=== PATIENT | male | born 1950 | race Caucasian/White ===

== ENCOUNTER 2017-08-23 09:08 | Outpatient (CLI) | payer OTHER | END 2017-08-23 10:38 | disposition home or self-care (01) | LOC: SONOGRAMA 09:08 | DX: E06.9 Thyroiditis, unspecified (principal); D69.3 Immune thrombocytopenic purpura; D51.0 Vitamin B12 deficiency anemia due to intrinsic factor deficiency; D51.1 Vitamin B12 deficiency anemia due to selective vitamin B12 malabsorption with proteinuria; E06.3 Autoimmune thyroiditis; K90.89 Other intestinal malabsorption; K59.00 Constipation, unspecified; I10 Essential (primary) hypertension; I25.118 Atherosclerotic heart disease of native coronary artery with other forms of angina pectoris; D69.59 Other secondary thrombocytopenia; B96.81 Helicobacter pylori [H. pylori] as the cause of diseases classified elsewhere; N40.1 Benign prostatic hyperplasia with lower urinary tract symptoms; E03.8 Other specified hypothyroidism ==

== ENCOUNTER → 2017-08-23 | Outpatient (CLI) | payer OTHER | END | disposition home or self-care (01) | LOC: LAB 07:47 | DX: D69.3 Immune thrombocytopenic purpura (principal); D51.0 Vitamin B12 deficiency anemia due to intrinsic factor deficiency; D51.1 Vitamin B12 deficiency anemia due to selective vitamin B12 malabsorption with proteinuria; E06.3 Autoimmune thyroiditis; K90.89 Other intestinal malabsorption; I10 Essential (primary) hypertension; I25.118 Atherosclerotic heart disease of native coronary artery with other forms of angina pectoris; D69.59 Other secondary thrombocytopenia; B96.81 Helicobacter pylori [H. pylori] as the cause of diseases classified elsewhere; N40.1 Benign prostatic hyperplasia with lower urinary tract symptoms; D50.8 Other iron deficiency anemias; D51.8 Other vitamin B12 deficiency anemias; E03.8 Other specified hypothyroidism; R97.0 Elevated carcinoembryonic antigen [CEA]; R97.8 Other abnormal tumor markers ==

== ENCOUNTER 2018-03-07 09:11 | Outpatient (CLI) | payer OTHER | END 2018-03-07 16:30 | disposition home or self-care (01) | LOC: LAB 09:11 | DX: D69.3 Immune thrombocytopenic purpura (principal); D51.0 Vitamin B12 deficiency anemia due to intrinsic factor deficiency; D51.1 Vitamin B12 deficiency anemia due to selective vitamin B12 malabsorption with proteinuria; E06.3 Autoimmune thyroiditis; K59.09 Other constipation; I10 Essential (primary) hypertension; I25.118 Atherosclerotic heart disease of native coronary artery with other forms of angina pectoris; D69.59 Other secondary thrombocytopenia; B96.81 Helicobacter pylori [H. pylori] as the cause of diseases classified elsewhere; N40.1 Benign prostatic hyperplasia with lower urinary tract symptoms; R97.0 Elevated carcinoembryonic antigen [CEA]; R97.8 Other abnormal tumor markers ==

== ENCOUNTER 2018-07-04 08:09 | Outpatient (CLI) | payer OTHER | END 2018-07-04 08:54 | disposition home or self-care (01) | LOC: LAB 08:09 | DX: N18.3 Chronic kidney disease, stage 3 (moderate) (principal); E11.21 Type 2 diabetes mellitus with diabetic nephropathy; D63.1 Anemia in chronic kidney disease; N30.00 Acute cystitis without hematuria; E78.49 Other hyperlipidemia; E03.8 Other specified hypothyroidism; I11.9 Hypertensive heart disease without heart failure; E78.1 Pure hyperglyceridemia; R73.01 Impaired fasting glucose; N18.9 Chronic kidney disease, unspecified; D69.3 Immune thrombocytopenic purpura; D51.0 Vitamin B12 deficiency anemia due to intrinsic factor deficiency; D51.1 Vitamin B12 deficiency anemia due to selective vitamin B12 malabsorption with proteinuria; E06.3 Autoimmune thyroiditis; K90.89 Other intestinal malabsorption; K59.00 Constipation, unspecified; I10 Essential (primary) hypertension; I25.118 Atherosclerotic heart disease of native coronary artery with other forms of angina pectoris; D69.59 Other secondary thrombocytopenia; B96.81 Helicobacter pylori [H. pylori] as the cause of diseases classified elsewhere; N40.1 Benign prostatic hyperplasia with lower urinary tract symptoms; D50.8 Other iron deficiency anemias; D51.8 Other vitamin B12 deficiency anemias; R97.0 Elevated carcinoembryonic antigen [CEA]; R97.20 Elevated prostate specific antigen [PSA]; R97.8 Other abnormal tumor markers ==

== ENCOUNTER 2018-07-06 09:32 | Outpatient (CLI) | payer OTHER | END 2018-07-06 09:36 | disposition home or self-care (01) | LOC: LAB 09:32 | DX: N18.3 Chronic kidney disease, stage 3 (moderate) (principal); E11.21 Type 2 diabetes mellitus with diabetic nephropathy; D63.1 Anemia in chronic kidney disease; N30.00 Acute cystitis without hematuria; E03.8 Other specified hypothyroidism; E78.49 Other hyperlipidemia ==

== ENCOUNTER 2019-01-03 08:34 | Outpatient (CLI) | payer OTHER | END 2019-01-03 08:40 | disposition home or self-care (01) | LOC: LAB 08:34 | DX: D69.3 Immune thrombocytopenic purpura (principal); D51.0 Vitamin B12 deficiency anemia due to intrinsic factor deficiency; E06.3 Autoimmune thyroiditis; K90.89 Other intestinal malabsorption; I10 Essential (primary) hypertension; I25.118 Atherosclerotic heart disease of native coronary artery with other forms of angina pectoris; D69.59 Other secondary thrombocytopenia; B96.81 Helicobacter pylori [H. pylori] as the cause of diseases classified elsewhere; N40.1 Benign prostatic hyperplasia with lower urinary tract symptoms; D50.8 Other iron deficiency anemias; D51.8 Other vitamin B12 deficiency anemias ==

== ENCOUNTER 2019-04-10 07:03 | Outpatient (CLI) | payer OTHER | END 2019-04-10 13:42 | disposition home or self-care (01) | LOC: LAB 07:03 | DX: D63.1 Anemia in chronic kidney disease (principal); N18.3 Chronic kidney disease, stage 3 (moderate); D69.3 Immune thrombocytopenic purpura; D51.0 Vitamin B12 deficiency anemia due to intrinsic factor deficiency; D51.1 Vitamin B12 deficiency anemia due to selective vitamin B12 malabsorption with proteinuria; E06.3 Autoimmune thyroiditis; K90.89 Other intestinal malabsorption; I25.118 Atherosclerotic heart disease of native coronary artery with other forms of angina pectoris; D69.59 Other secondary thrombocytopenia; B96.81 Helicobacter pylori [H. pylori] as the cause of diseases classified elsewhere; N40.1 Benign prostatic hyperplasia with lower urinary tract symptoms; D50.8 Other iron deficiency anemias; D51.8 Other vitamin B12 deficiency anemias; R97.0 Elevated carcinoembryonic antigen [CEA]; R92.0 Mammographic microcalcification found on diagnostic imaging of breast; R97.8 Other abnormal tumor markers; R78.89 Finding of other specified substances, not normally found in blood; K76.89 Other specified diseases of liver; R97.20 Elevated prostate specific antigen [PSA]; K77 Liver disorders in diseases classified elsewhere; E11.21 Type 2 diabetes mellitus with diabetic nephropathy; N30.00 Acute cystitis without hematuria; E78.49 Other hyperlipidemia; E03.8 Other specified hypothyroidism ==